=== PATIENT | male | born 1945 | race Caucasian/White ===

== ENCOUNTER 2023-03-06 13:12 | Outpatient (CLI) | payer MEDICARE, OTHER, SELFPAY ==
[2023-03-06] MEDS: BRIMONIDINE TARTRATE 0.2% OPHTH 1 DROP EYE-BOTH ×2 (13:30→14:18)
[2023-03-06] MEDS: TETRACAINE 0.5% OPHTH 1 DROP EYE-BOTH ×3 (13:30→14:07)
[2023-03-06 13:31] VITALS: BP 149/76; PULSE 77; RESP 16; O2SAT 100
--- NOTE | 2023-03-06 14:39 | PM.PROC ---
Procedure Note Date Seen: 03/06/23 Date of procedure: 03/06/23 Will [facility] bill your pro fee for this procedure?: No Pre-op diagnosis: obscuring lens capsules ou Procedure Description: NAME OF PROCEDURE YAG laser capsulotomy, bilateral eyes. PREOP DIAGNOSIS Obscuring lens capsule, bilateral eyes. POSTOP DIAGNOSIS Obscuring lens capsule, bilateral eyes, repaired. INDICATIONS FOR PROCEDURE This patient has experienced a painless progressive loss of vision in both eyes. Gualberto Pina MD was unable to improve this patients corrective lenses that would give them clear vision. For that reason, this patient elected to proceed with laser capsulotomy on both eyes. I explained the risks, benefits, alternative treatments to them including possible need for exchanging the implant. The patient understands, accepts, and elects to proceed with surgical repair. PROCEDURE After both pupils were dilated with 1% Mydriacyl, topical anesthetic was applied. The patient was positioned for the YAG laser where after placing a laser lens on the right eye , a standard cruciform capsulotomy was performed utilizing 45 pulses at 2.2 mJ. After placing a laser lens on the left eye , a standard cruciform capsulotomy was performed utilizing 62 pulses at 2.2 mJ. The patient was then discharged in good condition, having tolerated the procedure well. Condition on discharge was satisfactory.
== END 2023-03-06 14:18 | disposition home or self-care (01) ==
LOC: EYE PRC 13:14
PROVIDERS: PCP Family Medicine; Visit Provider Ophthalmology
DX: H26.9 Unspecified cataract (principal)
CPT/HCPCS: 66821; A9270